=== PATIENT | male | born 1965 | race Caucasian/White ===

== ENCOUNTER 2018-06-02 10:24 | Outpatient (CLI) | payer BC ==
--- NOTE | 2018-06-02 11:52 | MRI ---
MRI LUMBAR SPINE PERFORMED WITHOUT CONTRAST ENHANCEMENT: Date: 06/02/18 HISTORY: Back pain and left leg pain. FINDINGS: Vertebral bodies are normal in height. Disc desiccation changes are seen at L3-4, L4-5, and L5-S1. Sm all T2 hyperintense lesion involving the right kidney is statistically most likely a small cyst. No s ignificant periaortic adenopathy. T12-L1: Unremarkable. L1-2: Unremarkable. L2-3: Unremarkable. L3-4: There is minimal disc bulge and mild facet hypertrophic change. No canal or foraminal stenosis . L4-5: Degenerative facet changes and mild disc bulge associated with some mild to moderate bilateral foraminal narrowing at this level. L5-S1: No central canal stenosis. There is some mild left-sided foraminal narrowing. IMPRESSION: Bilateral foraminal narrowing at the L4-5 level and mild left-sided foraminal narrowing at L5-S1. POS: KATIE
== END 2018-06-02 10:25 | disposition home or self-care (01) ==
LOC: MRI 10:24
PROVIDERS: ATTEND Neurological Surgery
DX: M54.16 Radiculopathy, lumbar region (principal); M99.83 Other biomechanical lesions of lumbar region
CPT/HCPCS: 72148

== ENCOUNTER 2019-06-14 08:13 | Day surgery (SDC) | payer BC ==
[2019-06-13 10:28] VITALS: BMI 28.1
--- NOTE | 2019-06-14 11:32 | OP ---
DATE OF PROCEDURE: 06/14/2019 PROCEDURES PERFORMED: Colonoscopy with snare polypectomy. PREMEDICATION: Given by Anesthesiology Department. PREPROCEDURE DIAGNOSES: Colon screening, average risk. POSTPROCEDURE DIAGNOSES: 1. A 6 mm flat polyp with mucus cap in the cecum. 2. Otherwise normal colonoscopy. DESCRIPTION OF PROCEDURE: Written consents were obtained prior to procedure. After adequate sedation, rectal exam was performed, which was normal. Endoscope was advanced to the cecum without difficulty. The quality of the bowel prep was good. The appendiceal orifice and ileocecal valve were visualized. Next to the appendiceal orifice, a 6 mm flat polyp with mucus cap was noted. The mucus cap was irrigated and suctioned off. A cold snare was used to completely excise the polyp and retrieved. The cecum, ascending colon, hepatic flexure, transverse colon, splenic flexure, descending colon, and rectosigmoid colon, all appeared normal. Retroflexion did not show any abnormality. The patient tolerated the procedure well. ASSESSMENT: 1. Flat cecal polyp with mucus cap, status post polypectomy. 2. Otherwise normal colon exam. RECOMMENDATION: Await biopsy result. Job ID: [id number]
== END 2019-06-14 11:22 | disposition home or self-care (01) ==
LOC: SDC 08:13
PROVIDERS: ATTEND Internal Medicine Gastroenterology
PROC: 0DBH8ZZ Excision of Cecum, Via Natural or Artificial Opening Endoscopic (ICD-10-PCS; principal; 2019-06-14)
DX: Z12.11 Encounter for screening for malignant neoplasm of colon (principal); K63.5 Polyp of colon; I10 Essential (primary) hypertension; E78.00 Pure hypercholesterolemia, unspecified; Z79.899 Other long term (current) drug therapy; Z88.2 Allergy status to sulfonamides
CPT/HCPCS: 88305

== ENCOUNTER 2020-05-13 08:47 | Outpatient (CLI) | payer BC ==
--- NOTE | 2020-05-13 10:07 | RAD ---
RIGHT HIP 2 VIEWS: HISTORY: Pain. COMPARISON: None. FINDINGS: No acute fracture or malalignment. Minimal acetabular osteophyte formation. Right obturator ring is intact. Normal sphericity of the femoral head. IMPRESSION: Normal examination of the right hip for age. POS: HOME
== END 2020-05-13 08:48 | disposition home or self-care (01) ==
LOC: SCSRAD 08:47
PROVIDERS: ATTEND Orthopaedic Surgery
DX: M25.551 Pain in right hip (principal); R29.898 Other symptoms and signs involving the musculoskeletal system

== ENCOUNTER 2020-05-15 11:48 | Outpatient (CLI) | payer BC, OTHER ==
--- NOTE | 2020-05-15 12:46 | MRI ---
MR the lumbar spine without contrast: 05/15/2020 History: Low back pain and right-sided hip pain COMPARISON: 06/02/2018 TECHNIQUE: Multiplanar multisequence MR images were obtained of lumbar spine without IV contrast FINDINGS: On the basis of 5 lumbar type vertebral bodies, conus medullaris terminates at theL1 level. Sagittal STIR imaging demonstrates no focal area of osseous marrow edema. Coronal STIR imaging was pr ovided through the sacrum/sacroiliac joints and demonstrates no abnormality T12-L1:Intervertebral disc height and signal intensity within normal limits. No significant central c anal or neural foraminal stenosis. Mild stable anterior wedging of the T12 vertebral body. L1-2:Intervertebral disc height and signal intensity appears within normal limits with no significant central canal or neural foraminal stenosis. L2-3:There is a new right paracentral/right foraminal disc extrusion with superior migration. Disc ex trusion measures 1 cm in transverse dimension and 1 cm in craniocaudal dimension. This leads to mass effect on the right L2 nerve root and associated moderate/severe right neural foraminal stenosis . There is mild right lateral recess stenosis. No left neural foraminal stenosis L3-4:Mild disc space narrowing and disc desiccation. Mild disc bulge. No significant central canal or neural foraminal stenosis L4-5:Mild bilateral facet hypertrophy. There is disc space narrowing with disc desiccation and mild d isc bulge. Mild/moderate bilateral neural foraminal stenosis, right greater than left, similar when compared to prior imaging. No significant central canal stenosis. L5-S1:Mild bilateral facet hypertrophy. Stable disc space narrowing, disc desiccation, and mild disc bulge. No significant central canal or neural foraminal stenosis Image retroperitoneal structures demonstrateno acute findings. IMPRESSION: Interval development of a disc extrusion in the right paracentral/right foraminal region at L2-3 exte nding into the right neural foramen with associated neural foraminal stenosis.
== END 2020-05-15 11:49 | disposition home or self-care (01) ==
LOC: MRI 11:48
PROVIDERS: ATTEND Anesthesiology
DX: M51.16 Intervertebral disc disorders with radiculopathy, lumbar region (principal); R10.30 Lower abdominal pain, unspecified; M48.061 Spinal stenosis, lumbar region without neurogenic claudication; M48.07 Spinal stenosis, lumbosacral region
CPT/HCPCS: 72148

== ENCOUNTER 2024-07-21 06:41 | Outpatient (CLI) | payer OTHER | END 2024-07-21 06:42 | disposition home or self-care (01) | LOC: MRI 06:41 | PROVIDERS: ATTEND Neurological Surgery | DX: M51.16 Intervertebral disc disorders with radiculopathy, lumbar region (principal); M48.04 Spinal stenosis, thoracic region; M48.061 Spinal stenosis, lumbar region without neurogenic claudication; M48.07 Spinal stenosis, lumbosacral region; M47.814 Spondylosis without myelopathy or radiculopathy, thoracic region; M40.204 Unspecified kyphosis, thoracic region | CPT/HCPCS: 72148 ==